=== PATIENT | male | born 1990 | race African-American/Black ===

== ENCOUNTER 2020-06-12 14:31 | Emergency (ER) | payer BC, OTHER ==
[2020-06-12 14:40] VITALS: BP 111/77; PULSE 85; BMI 29.5
[2020-06-12 15:01] VITALS: TEMP 97.2
[2020-06-12] MEDS ORDERED: KETOROLAC TROMETHAMINE 30 MG/1 ML VIAL IM ONE (15:19)
[2020-06-12] MEDS ORDERED: KETOROLAC TROMETHAMINE 30 MG/1 ML VIAL ONE (15:25)
== END 2020-06-12 15:30 | disposition home or self-care (01) ==
LOC: JERFT 14:31
PROC: 3E0233Z Introduction of Anti-inflammatory into Muscle, Percutaneous Approach (ICD-10-PCS; principal; 2020-06-12)
DX: M54.42 Lumbago with sciatica, left side (principal)
CPT/HCPCS: 99284-25